=== PATIENT | male | born 1955 | race Caucasian/White ===

== ENCOUNTER 2017-09-10 10:16 | Emergency (ER) | payer SELFPAY ==
[~2017-09-10] VITALS: Ht 188 cm; Wt 99.8 kg
--- NOTE | 2017-09-10 10:17 | NUR ---
PT TAKEN IN WHEELCHAIR TO BED 10
[2017-09-10 10:18] VITALS: BP 158/92
--- NOTE | 2017-09-10 10:18 | NUR ---
DR JI EVALUATING PT AT BEDSIDE
--- NOTE | 2017-09-10 10:18 | NUR ---
PATIENT PRESENTS TO ED WITH PER FAMILY MEMBER PT WAS STANDING," WHEN HE SUDDENLY FELL HIS LEGS GAVE OUT ON HIM" MOVING ALL EXTREMITIES EQUALLY AT THIS TIME . PT STATES . DENIES N/V/D; SKIN IS PINK/WARM/DRY; AAOX4 WITH EVEN AND STEADY GAIT; LUNGS CLEAR BL; HR EVEN AND REGULAR; PT DENIES ANY FEVER, CP, SOB, OR COUGH AT THIS TIME; PATIENT STATES PAIN OF 0/10 AT THIS TIME; VSS; PATIENT POSITIONED FOR COMFORT; HOB ELEVATED; BEDRAILS UP X2; BED DOWN. ER MD MADE AWARE OF PT STATUS.
--- NOTE | 2017-09-10 10:21 | NUR ---
PT TAKEN TO CT VIA LISA ACCOMPANIED BY CARMEN CABRERA, CARMEN DE SOUZA
--- NOTE | 2017-09-10 10:21 | NUR ---
PT TAKEN TO CT
[2017-09-10] MEDS ORDERED: NACL 0.9% 1,000 ML IV ONE ×2 (10:30)
--- NOTE | 2017-09-10 10:31 | NUR ---
PT RETURNED FROM CT
--- NOTE | 2017-09-10 10:31 | NUR ---
RETURNED FROM CT--CXR AT BEDSIDE
--- NOTE | 2017-09-10 10:31 | NUR ---
XRAY AT BEDSIDE
--- NOTE | 2017-09-10 10:36 | NUR ---
BLOOD COLLECTED AT IV START, HANDED TO DEMAND PLANNING ANALYST
[2017-09-10 10:53] LABS: HEMATOCRIT 43.3 % (36-52); MEAN CORPUSCULAR HEMOGLOBIN 33 pg (27-31); MEAN CORPUSCULAR HGB CONC 32 g/dL (33-37); MEAN CORPUSCULAR VOLUME 101.6 fL (80-94); PLATELET COUNT (AUTO) 354 K/uL (140-450); RED BLOOD CELL COUNT(AUTO) 4.26 MIL/uL (4.20-6.10); RED CELL DISTRIBUTION WIDTH 13.3 % (11.6-13.7); WHITE BLOOD COUNT (AUTO) 6.4 K/uL (4.8-10.8)
[2017-09-10 10:57] LABS: ANION GAP 14.3 (8-16); CARBON DIOXIDE 29.4 mmol/L (21-32); CREATININE 0.8 mg/dL (0.7-1.3); POTASSIUM 3.7 mmol/L (3.5-5.1)
[2017-09-10 10:59] LABS: PROTHROMBIN TIME 10.6 secs (10.8-13.4)
[2017-09-10 11:03] LABS: ALBUMIN 3.1 g/dL (3.4-5.0); TOTAL BILIRUBIN 0.2 mg/dL (0.0-1.0)
[2017-09-10 11:14] LABS: EOSINOPHILS % (MANUAL) 4 % (0-4); LYMPHOCYTES % (MANUAL) 48 % (20-46); MONOCYTES % (MANUAL) 7 % (5-12)
[2017-09-10 11:56] VITALS: BP 158/92
--- NOTE | 2017-09-10 11:56 | NUR ---
Patient discharged with v/s stable. Written and verbal after care instructions given and explained. Patient verbalized understanding. Ambulatory with steady gait. All questions addressed prior to discharge. Advised to follow up with PMD.
== END 2017-09-10 11:56 | disposition home or self-care (01) ==
LOC: EDBD 10:16 → MED 10:16
DX: F10.129 Alcohol abuse with intoxication, unspecified (principal); Z86.73 Personal history of transient ischemic attack (TIA), and cerebral infarction without residual deficits
CPT/HCPCS: 36415; 70450; 71045; 80053; 84484; 85025; 85610; 85730; 86886; 86900; 86901; 96360; 99285; G0482; J7030

== ENCOUNTER 2017-09-18 16:50 | Inpatient (IN) | payer MEDICAID ==
[~2017-09-18] VITALS: Ht 188 cm; Wt 103.0 kg
[2017-09-18 17:11] VITALS: BP 154/92
[2017-09-18] MEDS ORDERED: LORazepam 2 MG/ML VIAL IVP ONE ×2 (21:00→22:15)
[2017-09-18] MEDS ORDERED: ONDANSETRON 4 MG/2 ML VIAL IVP ONE ×2 (21:00→21:40)
[2017-09-18] MEDS ORDERED: NACL 0.9% 1,000 ML IV ONE ×3 (21:00→22:15)
[2017-09-18 21:26] LABS: BASOPHILS % (AUTO) 0.2 % (0.0-2.0); HEMATOCRIT 38.3 % (36-52); HEMOGLOBIN 13.1 g/dL (12.0-18.0); LYMPHOCYTES # (AUTO) 0.5 K/uL (2.0-11.5); LYMPHOCYTES % (AUTO) 5.1 % (20.5-51.1); MEAN CORPUSCULAR HEMOGLOBIN 34 pg (27-31); MEAN CORPUSCULAR HGB CONC 34 g/dL (33-37); MEAN CORPUSCULAR VOLUME 100.6 fL (80-94); MONOCYTES # (AUTO) 0.6 K/uL (0.8-1.0); MONOCYTES % (AUTO) 6.2 % (1.7-9.3); NEUTROPHILS # (AUTO) 8.8 K/uL (1.8-7.7); NEUTROPHILS % (AUTO) 88.5 % (42.2-75.2); PLATELET COUNT (AUTO) 181 K/uL (140-450); RED BLOOD CELL COUNT(AUTO) 3.81 MIL/uL (4.20-6.10); RED CELL DISTRIBUTION WIDTH 13.3 % (11.6-13.7)
[2017-09-18 22:19] LABS: ANION GAP 14.3 (8-16); CHLORIDE 93 mmol/L (98-107); POTASSIUM 3.3 mmol/L (3.5-5.1); SODIUM SERUM 135 mmol/L (136-145)
[2017-09-18 22:20] LABS: ALBUMIN 3.6 g/dL (3.4-5.0); ASPARTATE AMINOTRANSFERASE 352 U/L (15-37); GFR ARICAN-AMERICAN 97 mL/min (>90); GLUCOSE 139 mg/dL (74-106); TOTAL BILIRUBIN 2.4 mg/dL (0.0-1.0); UREA NITROGEN, BLOOD 11 mg/dL (7-18)
[2017-09-18 22:21] LABS: LIPASE 191 U/L (73-393)
[2017-09-18] MEDS ORDERED: ACETAMINOPHEN 325 MG TAB PO PRN (22:35)
[2017-09-18] MEDS ORDERED: LORazepam 2 MG/ML VIAL IVP PRN (22:35)
[2017-09-18] MEDS ORDERED: ONDANSETRON 4 MG/2 ML VIAL IVP PRN (22:35)
[2017-09-18] MEDS ORDERED: HYDROcodone/APAP 7.5/325 MG 1 TAB PO PRN (22:35)
[2017-09-18 23:30] VITALS: BP 160/98
[2017-09-18 23:41] LABS: FREE T4 (FREE THYROXINE) 1.03 ng/dL (0.76-1.46); MAGNESIUM 1.5 mg/dL (1.8-2.4); PHOSPHORUS 2.8 mg/dL (2.5-4.9); THYROID STIMULATING HORMONE 4.04 uIU/mL (0.34-3.74)
[2017-09-18] MEDS ORDERED: chlordiazePOXIDE 25 MG CAP PO SCH (23:55)
[2017-09-18] MEDS ORDERED: THIAMINE 100 MG TAB PO SCH (23:55)
[2017-09-18] MEDS ORDERED: MAG SULF 2000 MG/WATER PREMIX 50 ML IV SCH (23:55)
[2017-09-19] MEDS: NACL 0.9% 1,000 ML IV SCH ×3 (00:12→19:55)
[2017-09-19] MEDS ORDERED: POTASSIUM CHLORIDE 10 MEQ TABER PO SCH ×3 (00:55→10:00)
[2017-09-19] MEDS ORDERED: INSULIN LISPRO SLIDING SCALE 100 UNITS/ML VIAL SUBQ PRN (00:55)
[2017-09-19] MEDS ORDERED: DEXTROSE 50% 50 ML SYR IVP PRN (00:55)
[2017-09-19] MEDS: LISINOPRIL 5 MG TAB PO SCH ×2 (01:27→08:43)
[2017-09-19 04:00] VITALS: BP 155/82
[2017-09-19 06:31] LABS: BASOPHILS % (AUTO) 0.3 % (0.0-2.0); EOSINOPHILS % (AUTO) 0.1 % (0.0-4.0); HEMATOCRIT 32.2 % (36-52); HEMOGLOBIN 10.8 g/dL (12.0-18.0); LYMPHOCYTES # (AUTO) 1.3 K/uL (2.0-11.5); LYMPHOCYTES % (AUTO) 11.3 % (20.5-51.1); MEAN CORPUSCULAR HEMOGLOBIN 34 pg (27-31); MEAN CORPUSCULAR HGB CONC 34 g/dL (33-37); MEAN CORPUSCULAR VOLUME 101.2 fL (80-94); MONOCYTES # (AUTO) 0.8 K/uL (0.8-1.0); MONOCYTES % (AUTO) 6.7 % (1.7-9.3); NEUTROPHILS # (AUTO) 9.2 K/uL (1.8-7.7); NEUTROPHILS % (AUTO) 81.6 % (42.2-75.2); PLATELET COUNT (AUTO) 134 K/uL (140-450); RED BLOOD CELL COUNT(AUTO) 3.19 MIL/uL (4.20-6.10); RED CELL DISTRIBUTION WIDTH 13.2 % (11.6-13.7); WHITE BLOOD COUNT (AUTO) 11.3 K/uL (4.8-10.8)
[2017-09-19] MEDS: BLOOD GLUCOSE MONITORING 1 DEV DEV FS SCH ×3 (06:31→20:23)
[2017-09-19 06:49] LABS: ANION GAP 13.2 (8-16); CARBON DIOXIDE 29.1 mmol/L (21-32); CREATININE 0.9 mg/dL (0.7-1.3); POTASSIUM 3.3 mmol/L (3.5-5.1)
[2017-09-19 06:55] LABS: PHOSPHORUS 2.8 mg/dL (2.5-4.9)
[2017-09-19 08:00] VITALS: BP 159/86
[2017-09-19] MEDS: ECOTRIN 81 MG TABEC PO SCH (08:43)
[2017-09-19] MEDS: MULTIVITAMIN 1 TAB PO SCH (08:43)
[2017-09-19] MEDS: THIAMINE 100 MG TAB PO SCH (08:43)
[2017-09-19] MEDS: DOCUSATE SODIUM 100 MG GELCAP PO SCH ×2 (08:43→20:17)
[2017-09-19] MEDS: FOLIC ACID 1 MG TAB PO SCH (08:44)
[2017-09-19] MEDS ORDERED: LISINOPRIL 10 MG TAB PO SCH (10:01)
[2017-09-19 12:00] VITALS: BP 138/82
[2017-09-19 16:00] VITALS: BP 154/94
[2017-09-19 20:00] VITALS: BP 143/77
[2017-09-20] VITALS: BP 142/85
[2017-09-20] MEDS: NACL 0.9% 1,000 ML IV SCH (01:48)
[2017-09-20 04:00] VITALS: BP 154/77
[2017-09-20] MEDS: BLOOD GLUCOSE MONITORING 1 DEV DEV FS SCH (05:35)
[2017-09-20 06:10] LABS: BASOPHILS % (AUTO) 0.5 % (0.0-2.0); EOSINOPHILS # (AUTO) 0.2 K/uL (0-0.4); EOSINOPHILS % (AUTO) 2.3 % (0.0-4.0); HEMATOCRIT 31.3 % (36-52); HEMOGLOBIN 10.4 g/dL (12.0-18.0); LYMPHOCYTES # (AUTO) 1.7 K/uL (2.0-11.5); LYMPHOCYTES % (AUTO) 24.1 % (20.5-51.1); MEAN CORPUSCULAR HEMOGLOBIN 34 pg (27-31); MEAN CORPUSCULAR HGB CONC 33 g/dL (33-37); MEAN CORPUSCULAR VOLUME 102.3 fL (80-94); MONOCYTES # (AUTO) 0.7 K/uL (0.8-1.0); MONOCYTES % (AUTO) 9.6 % (1.7-9.3); NEUTROPHILS # (AUTO) 4.5 K/uL (1.8-7.7); NEUTROPHILS % (AUTO) 63.5 % (42.2-75.2); PLATELET COUNT (AUTO) 117 K/uL (140-450); RED BLOOD CELL COUNT(AUTO) 3.06 MIL/uL (4.20-6.10)
[2017-09-20] MEDS ORDERED: PANTOPRAZOLE 40 MG TABEC PO SCH ×2 (07:42→16:30)
[2017-09-20 08:00] VITALS: BP 168/102
[2017-09-20] MEDS ORDERED: THIA100T31 PO (08:44)
[2017-09-20] MEDS ORDERED: FOLI1TAB90 PO (08:44)
[2017-09-20] MEDS ORDERED: LORA-476 PO (08:44)
[2017-09-20] MEDS ORDERED: PANT40EC28 PO (08:44)
[2017-09-20] MEDS ORDERED: SUCR1TAB56 PO (08:44)
[2017-09-20] MEDS ORDERED: MULT-405 PO (08:44)
[2017-09-20] MEDS: FOLIC ACID 1 MG TAB PO SCH (08:49)
[2017-09-20] MEDS: ECOTRIN 81 MG TABEC PO SCH (08:49)
[2017-09-20] MEDS: THIAMINE 100 MG TAB PO SCH (08:49)
[2017-09-20] MEDS: MULTIVITAMIN 1 TAB PO SCH (08:50)
[2017-09-20] MEDS: DOCUSATE SODIUM 100 MG GELCAP PO SCH (08:50)
[2017-09-20 08:53] LABS: ANION GAP 15.2 (8-16); CREATININE 0.8 mg/dL (0.7-1.3); POTASSIUM 3.2 mmol/L (3.5-5.1)
[2017-09-20 09:00] LABS: MAGNESIUM 1.7 mg/dL (1.8-2.4); PHOSPHORUS 3.1 mg/dL (2.5-4.9)
[2017-09-20] MEDS ORDERED: LISINOPRIL 10 MG TAB PO SCH (09:00)
[2017-09-20] MEDS ORDERED: SUCRALFATE 1 GM TAB PO SCH (09:00)
[2017-09-20 15:09] LABS: FOLIC ACID 5.2 ng/mL (>3.0)
== END 2017-09-20 10:54 | disposition home or self-care (01) | DRG 775 ==
LOC: MED 16:50 → MTU 22:35
PROVIDERS: ADMIT Family Medicine Sports Medicine; ATTEND Family Medicine Sports Medicine
DX: F10.239 Alcohol dependence with withdrawal, unspecified (principal); G93.41 Metabolic encephalopathy; D68.59 Other primary thrombophilia; E11.69 Type 2 diabetes mellitus with other specified complication; F33.1 Major depressive disorder, recurrent, moderate; I69.954 Hemiplegia and hemiparesis following unspecified cerebrovascular disease affecting left non-dominant side; E83.42 Hypomagnesemia; I16.0 Hypertensive urgency; E87.1 Hypo-osmolality and hyponatremia; E87.6 Hypokalemia; E02 Subclinical iodine-deficiency hypothyroidism; I10 Essential (primary) hypertension; D53.9 Nutritional anemia, unspecified; D72.828 Other elevated white blood cell count; Z87.891 Personal history of nicotine dependence; Z91.19 Patient's noncompliance with other medical treatment and regimen
CPT/HCPCS: 36415; 71045; 80048; 80053; 82140; 82150; 82607; 82746; 82948; 83036; 83690; 83735; 83880; 84100; 84439; 84443; 84484; 85025; 85610; 85730; 87081; 93005; 93925; 93970; 96361; 96374; 96375; 96376; 97140; 99285; G0482; J1815; J2060; J2405; J3475; J7030; Q0092